=== PATIENT | female | born 1965 | race Caucasian/White ===

== ENCOUNTER → 2017-04-29 | Outpatient (REF) | payer OTHER ==
[2017-04-29 14:08] LABS: FOLATE 11.8 NG/ML (>5.4)
== END ==
LOC: M LAB REF 13:25
PROVIDERS: ATTEND Physician Assistant Medical
DX: R51 Headache (principal)

== ENCOUNTER → 2017-11-15 | Outpatient (REF) | payer OTHER ==
[2017-11-15 14:13] LABS: TOTAL 25(OH) VITAMIN D 26.7 NG/ML (30.0-100.0)
[2017-11-15 14:14] LABS: VITAMIN B12 LEVEL 280 PG/ML
[2017-11-15 14:15] LABS: FOLATE 11.9 NG/ML
[2017-11-17 14:12] LABS: ZONISAMIDE LEVEL 6.7 ug/mL (10.0-40.0)
== END ==
LOC: M LABDRAW1 11:34
DX: R51 Headache (principal); E55.9 Vitamin D deficiency, unspecified

== ENCOUNTER → 2018-12-29 | Outpatient (CLI) | payer OTHER ==
--- NOTE | 2018-12-29 17:02 | REP ---
Right rib series: Five views including PA chest. History: Pain. Comparison chest x-ray is from January 24, 2002. Findings: PA chest radiograph is normal. There is no evidence of pneumothorax or hydrothorax. Lung alonso are clear. Heart is not enlarged. Mediastinum is not widened. Multiple views of the right ribcage demonstrate mild diffuse osteopenia. There is a cortical step-off of the right anterior sixth rib consistent with a recent fracture. There is subtle old post-traumatic deformity involving the anterior ends of the right seventh eighth and ninth ribs. These do not appear acute. Impression: Acute nondisplaced fracture anterolateral right sixth rib. Diffuse osteoporosis. Electronically Signed by Angelo Romano MD 12/30/2018 08:29 A
--- NOTE | 2018-12-29 17:03 | REP ---
THORACIC SPINE, THREE VIEWS: HISTORY: Pain. COMPARISON: Chest x-ray 01/24/2002. There is no acute fracture or subluxation. There are old compression fractures of the T5-7 vertebral bodies with minimal height loss. There intervertebral discs are normal in height. IMPRESSION:Old T5-7 compression fractures with minimal height loss. Electronically Signed by Steven Coreas MD 12/29/2018 05:04 P
== END ==
LOC: M WUC 15:55
PROVIDERS: ATTEND Internal Medicine
DX: R07.81 Pleurodynia (principal); M81.0 Age-related osteoporosis without current pathological fracture; S22.31XA Fracture of one rib, right side, initial encounter for closed fracture; X58.XXXA Exposure to other specified factors, initial encounter; Y92.9 Unspecified place or not applicable; M48.54XA Collapsed vertebra, not elsewhere classified, thoracic region, initial encounter for fracture

== ENCOUNTER → 2019-06-02 | Outpatient (REF) | payer OTHER | LOC: M LAB REF 17:12 | PROVIDERS: ATTEND Nurse Practitioner Adult Health | DX: M81.0 Age-related osteoporosis without current pathological fracture (principal) ==

== ENCOUNTER → 2019-08-18 | Outpatient (CLI) | payer OTHER ==
[2019-08-18 13:29] LABS: HEMATOCRIT 39.4 % (36.0-47.0); HEMOGLOBIN 12.6 g/dl (12.0-15.5); PLATELET COUNT, AUTOMATED 248 10^3/uL (150-450); RED BLOOD COUNT 4.06 10^6/uL (4.00-5.40)
--- NOTE | 2019-08-18 14:00 | REP ---
ACUTE ABDOMINAL SERIES: THREE VIEWS. HISTORY: Abdominal pain and diarrhea. Diverticulosis. Comparison radiographs are from December 29, 2018. FINDINGS: Upright chest radiograph shows no evidence of infiltrate or free subdiaphragmatic air. Heart is not enlarged. Supine and erect views of the abdomen demonstrate small quantities of air throughout the colon. No formed stool is visible. No large or small bowel dilation is seen. Psoas margins and flank stripes are intact. No evidence of significant air fluid level or free intraperitoneal air. IMPRESSION: No acute abnormality. Electronically Signed by Angelo Romano MD 08/18/2019 07:41 P
[2019-08-18 14:11] LABS: ANISOCYTOSIS 1+; ATYPICAL LYMPH 5 % (0-5); BASOPHILS 2 % (0-1); EOSINOPHILS 1 % (0-3); LYMPHOCYTES 7 % (16-44); MONOCYTES 6 % (0-5); NEUTROPHILS 71 % (28-66)
[2019-08-18 14:12] LABS: MICROCYTOSIS 1+; PLATELET ESTIMATE NORMAL (NORMAL)
[2019-08-18 14:29] LABS: ALBUMIN 3.6 GM/DL (3.2-5.2); ALT/SGPT 21 U/L (12-78); AMYLASE 52 U/L (25-115); BILIRUBIN,TOTAL 1.1 MG/DL (0.2-1.0); BLOOD UREA NITROGEN 7 MG/DL (7-18); CALCIUM LEVEL 8.3 MG/DL (8.5-10.1); CARBON DIOXIDE LEVEL 26 MEQ/L (21-32); CHLORIDE LEVEL 106 MEQ/L (98-107); CREATININE FOR GFR 0.79 MG/DL (0.55-1.30); GLOMERULAR FILTRATION RATE > 60.0 (>51); LIPASE 145 U/L (73-393); POTASSIUM SERUM 3.8 MEQ/L (3.5-5.1); SODIUM LEVEL 139 MEQ/L (136-145); TOTAL PROTEIN 6.4 GM/DL (6.4-8.2)
[2019-08-21 06:29] LABS: GLUCOSE, FASTING 96 MG/DL (70-100); WHITE BLOOD COUNT 4.6 10^3/uL (4.0-10.0)
== END ==
LOC: M WUC 09:46
PROVIDERS: ATTEND Physician Assistant
DX: K57.92 Diverticulitis of intestine, part unspecified, without perforation or abscess without bleeding (principal)

== ENCOUNTER → 2019-08-30 | Outpatient (REF) | payer OTHER | LOC: M LAB REF 16:23 | PROVIDERS: ATTEND Nurse Practitioner Adult Health | DX: N39.0 Urinary tract infection, site not specified (principal); R10.9 Unspecified abdominal pain ==

== ENCOUNTER → 2020-08-26 | Outpatient (CLI) | payer OTHER ==
[2020-08-26 21:12] LABS: BASO # 0.1 10^3/uL (0.0-0.2); EOS # 0.3 10^3/uL (0.0-0.5); EOS % 4.6 % (0.0-3.0); HEMATOCRIT 39.7 % (36.0-47.0); HEMOGLOBIN 12.7 g/dl (12.0-15.5); LYMPH # 1.2 10^3/uL (1.5-5.0); LYMPH % 20.1 % (24.0-44.0); MEAN CORPUSCULAR HEMOGLOBIN 31.5 pg (27.0-33.0); MEAN CORPUSCULAR VOLUME 98.5 fl (80.0-96.0); MONO # 0.7 10^3/uL (0.0-0.8); MONO % 11.3 % (0.0-5.0); NEUTROPHILS # 3.7 10^3/uL (1.5-8.5); NEUTROPHILS % 62.8 % (36.0-66.0); PLATELET COUNT, AUTOMATED 307 10^3/uL (150-450); RED BLOOD COUNT 4.03 10^6/uL (4.00-5.40); WHITE BLOOD COUNT 5.9 10^3/uL (4.0-10.0)
[2020-08-27 08:46] LABS: ERYTHROCYTE SEDIMENTATION RATE 10 mm/hr (0-30)
[2020-08-28 14:08] LABS: ANTINUCLEAR ANTIBODIES DIRECT Negative (Negative)
== END ==
LOC: M WUC 17:34
PROVIDERS: ATTEND Physician Assistant Medical
DX: R51.9 Headache, unspecified (principal)

== ENCOUNTER → 2021-01-02 | Outpatient (CLI) | payer OTHER ==
[~2021-01-02] MED LIST: ISOVUE-370 76% 100ML VIAL As Ordered ONE
--- NOTE | 2021-01-02 09:43 | REP ---
INDICATION: CHRONIC COUGH COMPARISON: None TECHNIQUE: Axial contrast enhanced images from the thoracic inlet to the upper abdomen with coronal and sagittal reformations using 75 ml Isovue 370 intravenous contrast material. This CT examination was performed using the following dose reduction techniques: Automated exposure control, adjustment of mA and/or kv according to the patient's size, and use of iterative reconstruction technique. FINDINGS: Bilateral lung alonso are symmetric and well aerated. No consolidation, suspicious nodule or mass lesion. No pleural effusion. No pneumothorax. Tracheobronchial tree is patent and without bronchiectasis. No axillary, hilar, or mediastinal adenopathy is appreciated. Mediastinum demonstrates normal thoracic aorta, pulmonary vasculature, and heart/pericardium. Surrounding musculoskeletal structures are intact and without acute osseous abnormality. IMPRESSION: Normal contrast-enhanced chest CT. No acute mediastinal or pleuroparenchymal process. <Electronically signed by Ezekiel Farias > 01/02/21 [id number]
== END ==
LOC: M RAD 08:30
PROVIDERS: ATTEND Nurse Practitioner Adult Health
DX: R05 Cough (principal)
CPT/HCPCS: 71260; Q9967

== ENCOUNTER → 2021-03-05 | Outpatient (CLI) | payer OTHER ==
[~2021-03-05] MED LIST changes: +ADV500INH; +ALBU8.5H; +D31000TA2 PO; +GNP250TA9 PO; -ISOVUE-370 76% 100ML VIAL As Ordered ONE; +MONT10TA10; +NIAS500T23 PO; +ZONI100C17
== END ==
LOC: M LABSMTC 12:39
PROVIDERS: ATTEND Anesthesiology
DX: Z01.812 Encounter for preprocedural laboratory examination (principal); Z20.822 Contact with and (suspected) exposure to COVID-19

== ENCOUNTER 2021-03-10 08:08 | Day surgery (SDC) | payer OTHER ==
[~2021-03-10] VITALS: Ht 160 cm; Wt 60.7 kg
[~2021-03-10 08:08] MED LIST changes: +NS 1,000 ML IV ONE
[2021-03-10] MEDS ORDERED: propofoL 200 MG/20 ML VIAL As Ordered ONE ×2 (08:52→09:05)
[2021-03-10] MEDS ORDERED: LIDOCAINE 2% MDV 20ML VIAL As Ordered ONE (08:52)
--- NOTE | 2021-03-10 09:13 | ROOR ---
Patient Name: Michelle Griffin Procedure Date: 03/10/2021 8:54 AM Date of : 1965 Age: 55 Room: [facility] Gender: Female Note Status: Finalized Procedure: Total Colonoscopy to Cecum + ileoscopy Indications: Screening for colorectal malignant neoplasm Providers: Alexander Wilson MD Referring MD: URIAH NAVA JR, MD Requesting Provider: Medicines: Monitored Anesthesia Care Complications: No immediate complications. Procedure: Pre-Anesthesia Assessment: - The heart rate, respiratory rate, oxygen saturations, blood pressure, adequacy of pulmonary ventilation, and response to care were monitored throughout the procedure. The Colonoscope was introduced through the anus and advanced to the terminal ileum, with identification of the appendiceal orifice and IC valve. The colonoscopy was performed without difficulty. The patient tolerated the procedure well. The quality of the bowel preparation was good. Findings: The perianal and digital rectal examinations were normal. Non-bleeding external internal hemorrhoids were found during retroflexion. The hemorrhoids were small and Grade I (internal hemorrhoids that do not prolapse). Scattered small-mouthed diverticula were found in the recto-sigmoid colon, sigmoid colon and descending colon. The terminal ileum appeared normal. The exam was otherwise without abnormality on direct and retroflexion views. Impression: - Non-bleeding external internal hemorrhoids. - Diverticulosis in the recto-sigmoid colon, in the sigmoid colon and in the descending colon. - The examined portion of the ileum was normal. - The examination was otherwise normal on direct and retroflexion views. - No specimens collected. - The exam was otherwise normal to the cecum. Recommendation: - Patient has a contact number available for emergencies. The signs and symptoms of potential delayed complications were discussed with the patient. Return to normal activities tomorrow. Written discharge instructions were provided to the patient. - High fiber diet. - Discharge patient to home. - Continue present medications. - Repeat colonoscopy in 10 years for screening purposes. - Return to referring physician. - The findings and recommendations were discussed with the patient's family. Procedure Code(s): --- Professional --- 82113, Colonoscopy, flexible; diagnostic, including collection of specimen(s) by brushing or washing, when performed (separate procedure) Diagnosis Code(s): --- Professional --- Z12.11, Encounter for screening for malignant neoplasm of colon K64.0, First degree hemorrhoids K64.4, Residual hemorrhoidal skin tags K57.30, Diverticulosis of large intestine without perforation or abscess without bleeding CPT copyright 2019 [employer]. All rights reserved. The codes documented in this report are preliminary and upon voyage management system operator review may be revised to meet current compliance requirements. Alexander Wilson MD Alexander Wilson MD 03/10/2021 9:13:16 AM Electronically signed by Alexander Wilson MD Number of Addenda: 0 Note Initiated On: 03/10/2021 8:54 AM Estimated Blood Loss: Estimated blood loss: none.
[2021-03-10 09:35] VITALS: BP 130/75
== END 2021-03-10 10:13 | disposition home or self-care (01) ==
LOC: M OPP 08:08
PROVIDERS: ATTEND Internal Medicine Gastroenterology
DX: Z12.11 Encounter for screening for malignant neoplasm of colon (principal); K57.30 Diverticulosis of large intestine without perforation or abscess without bleeding; K64.4 Residual hemorrhoidal skin tags; K64.8 Other hemorrhoids; Z79.899 Other long term (current) drug therapy

== ENCOUNTER → 2021-06-05 | Outpatient (REF) | payer OTHER ==
[~2021-06-05] MED LIST changes: -NS 1,000 ML IV ONE
== END ==
LOC: M LAB REF 12:03
PROVIDERS: ATTEND Nurse Practitioner Adult Health
DX: R19.7 Diarrhea, unspecified (principal)

== ENCOUNTER → 2021-12-24 | Outpatient (CLI) | payer OTHER ==
[~2021-12-24] MED LIST changes: -MONT10TA10; +MONT10TA97
== END ==
LOC: M WUC 09:11
PROVIDERS: ATTEND Nurse Practitioner Adult Health
DX: R07.9 Chest pain, unspecified (principal)

== ENCOUNTER → 2022-02-25 | Outpatient (CLI) | payer OTHER ==
[~2022-02-25] MED LIST changes: -D31000TA2 PO; +VITA100093 PO
== END ==
LOC: M WHC 14:34
PROVIDERS: ATTEND Nurse Practitioner Adult Health
DX: Z12.31 Encounter for screening mammogram for malignant neoplasm of breast (principal); M85.88 Other specified disorders of bone density and structure, other site

== ENCOUNTER 2022-05-14 02:08 | Emergency (ER) | payer OTHER ==
[~2022-05-14] VITALS: Ht 161.3 cm; Wt 61.1 kg
[~2022-05-14 02:08] MED LIST changes: -ZONI100C17; +ZONI100C67
[2022-05-14 02:10] VITALS: BP 137/83
== END 2022-05-14 03:45 | disposition left against medical advice (07) ==
LOC: M ED 02:08
DX: Z53.29 Procedure and treatment not carried out because of patient's decision for other reasons (principal)

== ENCOUNTER → 2022-05-22 | Outpatient (REF) | payer OTHER | LOC: M LAB REF 11:57 | PROVIDERS: ATTEND Nurse Practitioner Adult Health | DX: R19.7 Diarrhea, unspecified (principal) ==

== ENCOUNTER → 2022-09-01 | Outpatient (REF) | payer OTHER | LOC: M LAB REF 12:15 | PROVIDERS: ATTEND Nurse Practitioner Adult Health | DX: D64.9 Anemia, unspecified (principal) ==

== ENCOUNTER → 2023-02-23 | Outpatient (REF) | payer OTHER ==
[2023-02-23 17:40] LABS: PERCENT SATURATION 17.7 % (13.2-45.0)
[2023-02-23 17:41] LABS: FERRITIN 11.1 NG/ML (7.3-270.7)
== END ==
LOC: M LAB REF 16:31
PROVIDERS: ATTEND Nurse Practitioner Adult Health
DX: D51.9 Vitamin B12 deficiency anemia, unspecified (principal); D64.9 Anemia, unspecified

== ENCOUNTER → 2023-12-20 | Outpatient (CLI) | payer OTHER | LOC: M WUC 10:32 | PROVIDERS: ATTEND Nurse Practitioner Adult Health | DX: M46.96 Unspecified inflammatory spondylopathy, lumbar region (principal); M25.552 Pain in left hip; Z91.81 History of falling ==

== ENCOUNTER → 2024-10-23 | Outpatient (CLI) | payer OTHER | LOC: M WHC 08:50 | PROVIDERS: ATTEND Nurse Practitioner Adult Health | DX: Z12.31 Encounter for screening mammogram for malignant neoplasm of breast (principal); M81.0 Age-related osteoporosis without current pathological fracture; M85.851 Other specified disorders of bone density and structure, right thigh; M85.852 Other specified disorders of bone density and structure, left thigh ==

== ENCOUNTER → 2025-06-26 | Outpatient (REF) | payer OTHER ==
[~2025-06-26] MED LIST changes: -ADV500INH; +ADVA1AER10
== END ==
LOC: M LAB REF 12:05
PROVIDERS: ATTEND Nurse Practitioner Adult Health
DX: D64.9 Anemia, unspecified (principal)

== ENCOUNTER → 2025-07-23 | Outpatient (CLI) | payer OTHER | LOC: M WHC 07:16 | PROVIDERS: ATTEND Nurse Practitioner Adult Health | DX: R10.30 Lower abdominal pain, unspecified (principal) ==

== ENCOUNTER → 2025-10-11 | Outpatient (CLI) | payer OTHER ==
[~2025-10-11] MED LIST changes: +ISOVUE-370 76% 100 ML VIAL ONE
== END ==
LOC: M PLAIMG 12:07
PROVIDERS: ATTEND Nurse Practitioner Adult Health
DX: N28.1 Cyst of kidney, acquired (principal); K57.90 Diverticulosis of intestine, part unspecified, without perforation or abscess without bleeding; K76.89 Other specified diseases of liver; R10.9 Unspecified abdominal pain
CPT/HCPCS: 74177; Q9967

== ENCOUNTER → 2025-10-15 | Outpatient (REF) | payer OTHER ==
[~2025-10-15] MED LIST changes: -ISOVUE-370 76% 100 ML VIAL ONE
[2025-10-17 11:36] LABS: DRVV SCREEN 70.2 SECONDS; PTT LUPUS TYPE ANTICOAG SCREEN 1.86 (0-1.20)
[2025-10-17 11:43] LABS: DRVV CONFIRM 52.1 SECONDS; LUPUS CONFIRM RATIO 1.39
[2025-10-17 11:44] LABS: NORMALIZED RATIO 1.33 (0.00-1.20)
[2025-10-18 13:23] LABS: CARDIOLIPIN IGA ANTIBODY 2.5 APL-U/mL (<20.0); CARDIOLIPIN IGG ANTIBODY < 2.0 GPL-U/mL (<20.0); CARDIOLIPIN IGM ANTIBODY 5.9 MPL-U/mL (<20.0)
[2025-10-18 16:38] LABS: HOMOCYST(E)INE SERUM 13.1 umol/L (< or = 13.4)
[2025-10-19 17:48] LABS: MTHFR DNA ANALYSIS POSITIVE
[2025-10-20 14:28] LABS: FACTOR II PROTHROMBIN GENE AN NEGATIVE
[2025-10-21 00:13] LABS: ANTI THROMBIN 3 FUNCT ACTIVITY 121 % normal (80-135); PROTEIN C FUNCTIONAL ACTIVITY 197 % normal (70-180); PROTEIN S FUNCTIONAL ACTIVITY 166 % normal (60-140)
[2025-10-21 18:47] LABS: FACTOR V LEIDEN FOR MEDINET NEGATIVE
== END ==
LOC: M LAB REF 16:53
DX: R10.9 Unspecified abdominal pain (principal); I82.811 Embolism and thrombosis of superficial veins of right lower extremity

== ENCOUNTER → 2025-10-16 | Outpatient (CLI) | payer OTHER | LOC: M RAD 12:17 | DX: I80.01 Phlebitis and thrombophlebitis of superficial vessels of right lower extremity (principal); I83.91 Asymptomatic varicose veins of right lower extremity ==